=== PATIENT | male | born 1980 | race African-American/Black ===

== ENCOUNTER 2020-05-03 06:38 | Emergency (ER) | payer MEDICAID ==
[~2020-05-03] VITALS: Ht 165.1 cm; Wt 64.0 kg
[2020-05-03] MEDS ORDERED: ACETAMINOPHEN WITH CODEINE 300/30MG TABLET PO ONE (07:45)
[2020-05-03] MEDS ORDERED: TRANEXAMIC ACID 1,000 MG/10 ML TP ONE (07:45)
[2020-05-03] MEDS ORDERED: BACITRACIN ZINC OINT UDPKT TOP ONE (07:45)
[2020-05-03 09:20] VITALS: BP 128/89
== END 2020-05-03 09:33 | disposition home or self-care (01) ==
LOC: ER 06:38
DX: S81.811D Laceration without foreign body, right lower leg, subsequent encounter (principal); Z88.0 Allergy status to penicillin; X58.XXXD Exposure to other specified factors, subsequent encounter
CPT/HCPCS: 99284

== ENCOUNTER 2021-11-28 15:08 | Emergency (ER) | payer MEDICAID, OTHER ==
[~2021-11-28] VITALS: Ht 167.6 cm; Wt 80.0 kg
[2021-11-28] MEDS ORDERED: BALANCED SALT IRRIG SOLN 15ML IR ONE (16:00)
[2021-11-28] MEDS ORDERED: FLUORESCEIN SODIUM 1MG/STRIP LEFTEYE ONE (16:00)
[2021-11-28] MEDS ORDERED: TETRACAINE 0.5% OPHTH DROPS 4ML LEFTEYE ONE (16:00)
[2021-11-28] MEDS ORDERED: IBUPROFEN 600MG TABLET PO NR (17:24)
[2021-11-28] MEDS ORDERED: CIPR5DRO LEFTEYE (17:31)
[2021-11-28] MEDS ORDERED: NAPR-681 PO (17:31)
[2021-11-28 18:00] VITALS: BP 127/86
== END 2021-11-28 18:01 | disposition home or self-care (01) ==
LOC: ER 15:08
DX: H10.32 Unspecified acute conjunctivitis, left eye (principal)
CPT/HCPCS: 99283

== ENCOUNTER 2025-03-12 10:55 | Emergency (ER) | payer MEDICAID ==
[~2025-03-12] VITALS: Ht 167.6 cm; Wt 77.0 kg
[~2025-03-12 10:55] MED LIST: CIPR5DRO LEFTEYE; NAPR-681 PO
[2025-03-12 10:58] VITALS: O2SAT 99
[2025-03-12 13:21] VITALS: BP 108/67; PULSE 68; RESP 16; TEMP 37.2; O2SAT 100
== END 2025-03-12 13:32 | disposition home or self-care (01) ==
LOC: ER 10:55
DX: M79.605 Pain in left leg (principal); M54.50 Low back pain, unspecified; E11.9 Type 2 diabetes mellitus without complications; Z88.0 Allergy status to penicillin
CPT/HCPCS: 72100; 73560; 73590; 99284